=== PATIENT | male | born 2000 | race American Indian/Alaskan Native ===

== ENCOUNTER 2020-04-15 22:09 | Emergency (ER) | payer SELFPAY ==
[2020-04-15 23:06] VITALS: BP 118/78
--- NOTE | 2020-04-15 23:41 | XRay Report ---
LEFT HAND 3 VIEW(S) INDICATION / CLINICAL INFORMATION: left hand pain COMPARISON: None available. FINDINGS: BONES / JOINT(S): No acute fracture or subluxation. No significant arthritis. SOFT TISSUES: No significant abnormality. ADDITIONAL FINDINGS: None. Signer Name: Vaughn Tom MD Signed: 04/15/2020 11:37 PM Workstation Name: [id number]
== END 2020-04-16 01:30 | disposition left against medical advice (07) ==
LOC: ED 22:09
DX: M79.642 Pain in left hand (principal); Z53.21 Procedure and treatment not carried out due to patient leaving prior to being seen by health care provider